=== PATIENT | female | born 1965 | race African-American/Black ===

== ENCOUNTER 2018-11-14 12:51 | Emergency (ER) | payer OTHER ==
[~2018-11-14] VITALS: Ht 167.6 cm; Wt 116.1 kg
[~2018-11-14 12:51] MED LIST: BUS5 PO; COG1; LATUDA40 M1 PO; LIT150; NORCO1 TA2 PO; PROCARDIA XL90 MG PO; RESPERIDOL; TRA50; TRAZODONE50 M1 PO; ZIA10; ZOL50 PO
[2018-11-14 12:54] VITALS: Ht 167.6 cm; Wt 116.1 kg
[2018-11-14 15:18] VITALS: BP 170/103
== END 2018-11-14 15:18 | disposition home or self-care (01) ==
LOC: ED 12:51
DX: K13.70 Unspecified lesions of oral mucosa (principal); I10 Essential (primary) hypertension; F31.9 Bipolar disorder, unspecified

== ENCOUNTER 2018-12-01 09:13 | Emergency (ER) | payer OTHER ==
[~2018-12-01] VITALS: Ht 165.1 cm; Wt 114.9 kg
[2018-12-01 09:19] VITALS: Ht 165.1 cm; Wt 114.9 kg
[2018-12-01 10:35] LABS: PLATELET COUNT 252 x10^3mcL (130-400)
[2018-12-01 10:59] LABS: microscopic required? NO
[2018-12-01 11:03] LABS: CALCIUM 9.1 mg/dL (8.5-10.1); CARBON DIOXIDE 28.8 mmol/L (21-32); CHLORIDE SERUM 106 mmol/L (98-107); CREATININE SERUM 0.9 mg/dL (0.6-1.0); GFR1 > 60 mL/min; GLUCOSE SERUM 92 mg/dL (74-106); POTASSIUM SERUM 4.1 mmol/L (3.5-5.1); SODIUM SERUM 142 mmol/L (136-145)
[2018-12-01 11:08] LABS: ALBUMIN 3.4 g/dL (3.4-5.0); ALKALINE PHOSPHATASE 125 U/L (46-116); ALT/SGPT 19 U/L (14-59); AST/SGOT 13 U/L (15-37); BILIRUBIN TOTAL 0.36 mg/dL (0.20-1.00); TOTAL PROTEIN, SERUM 7.7 g/dL (6.4-8.2)
[2018-12-01 11:25] LABS: urine erythrocyte NEGATIVE (NEGATIVE)
[2018-12-01 12:04] VITALS: BP 142/101
== END 2018-12-01 12:04 | disposition home or self-care (01) ==
LOC: ED 09:13
PROVIDERS: Emergency Medicine
DX: H66.92 Otitis media, unspecified, left ear (principal); R42 Dizziness and giddiness; F31.9 Bipolar disorder, unspecified; I10 Essential (primary) hypertension; Z59.0 Homelessness
CPT/HCPCS: 36415; 82962

== ENCOUNTER 2019-01-09 01:55 | Emergency (ER) | payer OTHER ==
[~2019-01-09] VITALS: Ht 165.1 cm; Wt 116.1 kg
[2019-01-09 02:01] VITALS: Ht 165.1 cm; Wt 116.1 kg
[2019-01-09 05:43] VITALS: BP 118/67
== END 2019-01-09 05:43 | disposition home or self-care (01) ==
LOC: ED 01:55
DX: M25.562 Pain in left knee (principal); F31.9 Bipolar disorder, unspecified; E78.00 Pure hypercholesterolemia, unspecified
CPT/HCPCS: J1885

== ENCOUNTER → 2019-08-05 | Emergency (ER) | payer OTHER ==
[~2019-08-05] VITALS: Ht 172.7 cm; Wt 102.1 kg
[2019-08-05 22:59] VITALS: Ht 172.7 cm; Wt 102.1 kg
[2019-08-06 00:05] LABS: microscopic required? NO
[2019-08-06 00:19] LABS: urine erythrocyte NEGATIVE (NEGATIVE)
[2019-08-06 04:17] VITALS: BP 140/80
== END ==
LOC: ED 22:54
DX: M54.6 Pain in thoracic spine (principal); M62.830 Muscle spasm of back
CPT/HCPCS: J1885

== ENCOUNTER 2019-08-09 13:36 | Emergency (ER) | payer OTHER ==
[~2019-08-09] VITALS: Ht 167.6 cm; Wt 110.2 kg
[2019-08-09 14:14] VITALS: Ht 167.6 cm; Wt 110.2 kg
[2019-08-09 15:11] LABS: BASOPHIL % 1.1 % (0-2); PLATELET COUNT 256 x10^3mcL (130-400)
[2019-08-09 15:18] LABS: RED CELL DISTRIBUTION WIDTH 15.6 % (11.5-14.5)
[2019-08-09 15:27] LABS: CARBON DIOXIDE 28.1 mmol/L (21-32); CHLORIDE SERUM 102 mmol/L (98-107); GFR1 > 60 mL/min; GLUCOSE SERUM 94 mg/dL (74-106); POTASSIUM SERUM 3.9 mmol/L (3.5-5.1); SODIUM SERUM 140 mmol/L (136-145)
[2019-08-09 15:32] LABS: ALBUMIN 3.8 g/dL (3.4-5.0); ALKALINE PHOSPHATASE 137 U/L (46-116); ALT/SGPT 23 U/L (14-59); AST/SGOT 13 U/L (15-37); BILIRUBIN TOTAL 0.4 mg/dL (0.20-1.00); LIPASE 95 IU/L (73-393)
[2019-08-09 15:40] LABS: TOTAL PROTEIN, SERUM 8.6 g/dL (6.4-8.2)
[2019-08-09 20:24] VITALS: BP 174/99
== END 2019-08-09 20:24 | disposition home or self-care (01) ==
LOC: ED 13:36
PROVIDERS: Emergency Medicine
DX: M62.830 Muscle spasm of back (principal); K52.9 Noninfective gastroenteritis and colitis, unspecified; E78.00 Pure hypercholesterolemia, unspecified; I10 Essential (primary) hypertension; Z90.49 Acquired absence of other specified parts of digestive tract
CPT/HCPCS: 36415; 82962; J2270; Q0162; Q9967